=== PATIENT | male | born 1945 | race Caucasian/White ===

== ENCOUNTER 2022-11-11 14:16 | Inpatient (IN) | payer OTHER ==
[~2022-11-11] VITALS: Ht 177.8 cm; Wt 85.4 kg
[2022-11-11] MEDS ORDERED: ELIQUIS5 M2 PO (15:07)
[2022-11-11] MEDS ORDERED: ALBU2.5V5 INH (15:07)
[2022-11-11] MEDS ORDERED: Acetaminophen650 M1 PO (15:07)
[2022-11-11] MEDS ORDERED: ALLO100 PO (15:07)
[2022-11-11] MEDS ORDERED: CARV6.25 PO (15:08)
[2022-11-11] MEDS ORDERED: Vitamin D1000 UNI1 PO (15:08)
[2022-11-11] MEDS ORDERED: CETI5 PO (15:08)
[2022-11-11] MEDS ORDERED: MIRT30 PO (15:09)
[2022-11-11] MEDS ORDERED: IPRAT-ALBUT 0.5-3 ML IH (15:09)
[2022-11-11] MEDS ORDERED: LOSA25 PO (15:09)
[2022-11-11] MEDS ORDERED: HYDHCL25 PO (15:09)
[2022-11-11] MEDS ORDERED: GABA100 PO (15:10)
[2022-11-11] MEDS ORDERED: FURO40 PO (15:10)
[2022-11-11] MEDS ORDERED: METO2.5 PO (15:10)
[2022-11-11 15:24] LABS: BASOPHILS ABSOLUTE AUTO 0.08 K/mm3 (0.00-0.23); BASOPHILS PERCENT AUTO 1 % (0-2); EOSINOPHILS ABSOLUTE AUTO 0.14 K/mm3 (0.00-0.68); EOSINOPHILS PERCENT AUTO 1 % (0-6); Hematocrit 47.9 % (37.0-53.0); Hemoglobin 15.6 g/dL (13.5-17.5); IMMATURE GRAN ABSOLUTE AUTO 0.03 K/mm3 (0.00-0.10); IMMATURE GRAN PERCENT AUTO 0 % (0-1); LYMPHOCYTES ABSOLUTE AUTO 0.77 K/mm3 (0.84-5.20); LYMPHOCYTES PERCENT AUTO 7 % (21-46); MONOCYTES ABSOLUTE AUTO 0.82 K/mm3 (0.16-1.47); MONOCYTES PERCENT AUTO 8 % (4-13); Mean Corpuscular HGB 32.7 pg (26.0-34.0); Mean Corpuscular HGB Conc 32.6 g/dL (31.5-36.5); Mean Corpuscular Volume 100 fL (80-100); Mean Platelet Volume 11.6 fL (9.1-12.4); NEUTROPHILS ABSOLUTE AUTO 8.84 K/mm3 (1.96-9.15); NEUTROPHILS PERCENT AUTO 83 % (41-73); Platelet Count 152 K/mm3 (150-400); RDW Coefficient Variation 14.2 % (11.7-14.2); RDW Standard Deviation 52.6 fL (35.1-46.3); Red Blood Cell Count 4.77 M/mm3 (4.30-5.90); White Blood Cell Count 10.68 K/mm3 (4.00-11.30)
[2022-11-11 15:42] LABS: Albumin, Blood 3.8 g/dL (3.4-5.0); Bilirubin, Total 0.6 mg/dL (0.1-1.0); Bun/Creatinine Ratio 25.4 (12.0-20.0); Calcium, Blood 9.2 mg/dL (8.5-10.1); Creatinine, Blood 3.66 mg/dL (0.60-1.20); Globulin, Blood 3.9 g/dL (2.2-4.0); Potassium, Blood 5.2 mmol/L (3.5-5.5); Total Protein, Blood 7.7 g/dL (6.4-8.2)
[2022-11-11] MEDS ORDERED: ENTRESTO 24 MG1 EACH PO (19:43)
[2022-11-11] MEDS ORDERED: ZOLP10 PO (20:26)
[2022-11-11 20:31] VITALS: BP 136/104
[2022-11-12 05:58] LABS: BASOPHILS ABSOLUTE AUTO 0.09 K/mm3 (0.00-0.23); BASOPHILS PERCENT AUTO 1 % (0-2); EOSINOPHILS PERCENT AUTO 1 % (0-6); Hematocrit 42.8 % (37.0-53.0); IMMATURE GRAN ABSOLUTE AUTO 0.03 K/mm3 (0.00-0.10); IMMATURE GRAN PERCENT AUTO 0 % (0-1); LYMPHOCYTES ABSOLUTE AUTO 0.74 K/mm3 (0.84-5.20); LYMPHOCYTES PERCENT AUTO 8 % (21-46); MONOCYTES ABSOLUTE AUTO 0.76 K/mm3 (0.16-1.47); MONOCYTES PERCENT AUTO 8 % (4-13); Mean Corpuscular HGB 32.4 pg (26.0-34.0); Mean Corpuscular HGB Conc 32.7 g/dL (31.5-36.5); Mean Corpuscular Volume 99 fL (80-100); Mean Platelet Volume 12.5 fL (9.1-12.4); NEUTROPHILS ABSOLUTE AUTO 7.38 K/mm3 (1.96-9.15); NEUTROPHILS PERCENT AUTO 81 % (41-73); Platelet Count 121 K/mm3 (150-400); RDW Coefficient Variation 13.9 % (11.7-14.2); RDW Standard Deviation 50.8 fL (35.1-46.3); Red Blood Cell Count 4.32 M/mm3 (4.30-5.90)
[2022-11-12 07:00] LABS: Albumin, Blood 3.2 g/dL (3.4-5.0); Bilirubin, Total 0.8 mg/dL (0.1-1.0); Calcium, Blood 8.6 mg/dL (8.5-10.1); Creatinine, Blood 3.62 mg/dL (0.60-1.20); Globulin, Blood 3.3 g/dL (2.2-4.0); Magnesium, Blood 2.7 mg/dL (1.6-2.4); Phosphorus, Blood 5.3 mg/dL (2.5-4.9); Potassium, Blood 5.5 mmol/L (3.5-5.5); Total Protein, Blood 6.5 g/dL (6.4-8.2)
--- NOTE | 2022-11-12 18:11 | NUR ---
SHIFT SUMMARY: PT A&O X4. PT NOT COOPERATIVE WITH CARE THIS SHIFT. PT REFUSING VITALS, MOST MEDICATIONS, AND 24 HOUR URINE. PT STATED TO DR. GOODSON ABOUT WANTING TO BE COMFORTABLE AND NOT TAKE MEDICATIONS THAT WILL NOT HELP HIM. PT PUT ON COMFORT CARE WITH MEDICATIONS IN PLACE. SODIUM BICARB HUNG THIS AM TO BE GIVEN TO PT FOR 23 HOURS BUT PT REFUSED THIS WELL. PT AGREEABLE TO ECHO THIS AM. EF AROUND 15%. PT STATING WANTING TO GO HOME. PROBABLE HOME TOMORROW WITH HOSPICE. PT RECEIVED ALBUTEROL AND DUONEB TREATMENTS THIS SHIFT RELATED TO DECREASED SOB. PT INDEPENDENT IN ROOM. CALL LIGHT IN REACH. BED IN LOWEST POSITION. WILL CONTINUE TO MONITOR.
--- NOTE | 2022-11-13 13:08 | NUR ---
Pt sleeping, woke pt to attemtp conversation about an alternate hospice plan. Pt aggitated and stated he wants to go home. Discussed with pt that hospice would not be available to his in his community on the [facility] for up to three weeks. He isnsited that he is ok and will manage on his own. Asked if he had friends or family he can depend on he stated he is ok on his own. Asked me to call him a cab [place]. He plans to drive himslf back to [place]. Attemtpted to carefully discuss with him that with his cardiac function that is not a safe plan. Also treid to discuss getting him the services he needs and deserves so he does not suffer. He was repetative and angry telling me he can do what he wants. conversation became difficult. 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 He stated it happens all the time. Pt aggitated and short of breath. at great risk for sudden . review of pt with nursing and counseling case manager and physican. Dr Graves notified and contacted his son to come get him. will follow up with [facility]. Suggested we contact [place] team for his support. but they are not in on wednesday. Will review with ethic and care team.
[2022-11-13] MEDS ORDERED: BENMENLOZ MT (13:22)
[2022-11-13] MEDS ORDERED: MORP20L PO (13:25)
--- NOTE | 2022-11-13 13:47 | NUR ---
DISCHARGE: WAS TOLD IN REPORT PT WAS FOUND OUTSIDE ON [facility] WITH [facility] WANTING TO LEAVE DURING THE EVENING. 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 ARRIVED TO PT ROOM WITH MEDICATIONS AROUND 0930 AND PT STATED "I DONT KNOW WHY IM TAKING THESE MEDICATIONS WHEN THEY DONT HELP ME." PT AGREED TO TAKE MEDICATIONS MINUS THE DOCUSATE. PT STATED "I DONT KNOW WHO PRESCRIBED THIS FOR ME BUT I WILL ABSOLUTELY NOT HAVE IT." PT REFUSED IV SODIUM BICARB. REFUSED TO PULL SLEEVE UP TO ACCESS IV TO EVEN FLUSH IT. PT ENDED UP PULLING IV OUT AROUND 1300. CARE MANAGEMENT TALKED TO HOSPICE IN [place] AND WOULD NOT BE ABLE TO SEE PT FOR 1-[address] GOODSON, YUDI CASTELAN, AND CASE MANAGEMENT TALKED ABOUT A PLAN FOR PT. CASE MANAGEMENT AND DR. 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 CALLED DR. GOODSON AND TOLD HER THAT PT HAD JUST SPOKEN TO SON AND TOLD HIM NOT TO DRIVE HERE TO PICK HIM UP. PT WAS NOT HAPPY WITH THIS DECISION AND STATED THAT [place] AND THERE IS NO REASON FOR HIS SON TO COME GET HIM HE IS ABLE TO DRIVE CAR BACK HOME TO [place]. PT STOOD OUTSIDE ROOM STATING HE WOULD BE LEAVING WITH [facility] AND THAT EITHER WE WOULD CALL A CAB FOR HIM OR HE WOULD WALK OUTSIDE AND HAVE SOMEONE CALL CAB FOR HIM. SON WAS CALLED BY CASE MANAGEMENT AND THE SON STATED THIS IS HOW HIS FATHER IS. PT APPEARED CAPABLE TO MAKE OWN DECISION AND DRIVE CAR HOME. SON OF PT ALSO SAID HE WOULD COME STAY WITH HIS DAD FOR A WHILE AND HAVE A HEART TO HEART. CAB CALLED AND PICKED PT UP AT 1330. [facility]S [facility] TO GET CAR AND DRIVE BACK HOME TO [place]. IV PULLED BY PT. D/C INSTRUCTIONS GIVEN WELL HARD SCRIPT FOR MORPHINE.
[2022-11-16 15:08] LABS: IMMUNOGLOBULIN A, QN, SERUM 344 mg/dL (61-437); IMMUNOGLOBULIN G, QN, SERUM 1106 mg/dL (603-1613); IMMUNOGLOBULIN M, QN, SERUM 106 mg/dL (15-143)
== END 2022-11-13 13:33 | disposition home or self-care (01) | DRG 683 ==
LOC: ER 14:16 → MEDS 18:34 → ENPENDDIS 11-13 12:30 → MEDS 11-13 13:33
PROVIDERS: Emergency Medicine; Internal Medicine Nephrology; ADMIT Internal Medicine
DX: N17.9 Acute kidney failure, unspecified (principal); E87.20 Acidosis, unspecified; I13.0 Hypertensive heart and chronic kidney disease with heart failure and stage 1 through stage 4 chronic kidney disease, or unspecified chronic kidney disease; I50.22 Chronic systolic (congestive) heart failure; F33.9 Major depressive disorder, recurrent, unspecified; I48.21 Permanent atrial fibrillation; Z66 Do not resuscitate; Z51.5 Encounter for palliative care; D63.1 Anemia in chronic kidney disease; F41.1 Generalized anxiety disorder; N18.30 Chronic kidney disease, stage 3 unspecified; E87.5 Hyperkalemia; F43.10 Post-traumatic stress disorder, unspecified; J30.9 Allergic rhinitis, unspecified; Z79.01 Long term (current) use of anticoagulants; Z79.51 Long term (current) use of inhaled steroids; Z99.2 Dependence on renal dialysis; Z79.899 Other long term (current) drug therapy; Z95.0 Presence of cardiac pacemaker
CPT/HCPCS: 36415; 71046; 76770; 80053; 83735; 83880; 84100; 85025; 93005; 93010; 94640; 94760; 99285-25; A9270; C8929; J7030; J7070; Q9957